=== PATIENT | female | born 1950 | race Caucasian/White ===

== ENCOUNTER 2018-07-06 13:37 | Inpatient (IN) | payer OTHER ==
[~2018-07-06] VITALS: Ht 167.6 cm; Wt 127.2 kg
--- NOTE | ~2018-07-06 | CATHLAB ---
[facility] [address] [place] [address] INVASIVE PROCEDURE REPORT Name: SOLANGE BRINK Room #: 210-P ADM IN M.R.#: [id number] Admission: 07/06/18 Attend Phys: Kristopher Beach, Discharge: Date of : 52 Date of Service: 07/07/18 1600 Report #: [id number] THIS REPORT FOR: //name// APPROVED REPORT Study performed: 07/07/2018 08:07:36 Patient Details Patient Status: In-Patient Room #: The patient is a 68 year-old female Event Personnel Kristopher Beach Tailoring Teacher, Chantelle Landis, Devon Wynne Kline, Tiffany RN RN, Johanny Marquez RN neuro intensivist physician Performed Art Access - R femoral artery* Magdiel Access - R femoral vein Right and Left Heart Cath w/or w/o Coronarie [id number] RLHC Aortogram Abdominal Peripheral Angio [id number] Renal Bilateral Peripheral Angiography [id number] CVRENALBIL Hemostasis w/ Mynx 09359 Initial Mod Sed Same Phys/QHP Gr5y [id number] 72247 Mod Sed Same Phys/QHP Ea 219937 Indication Chest pain Procedure Narrative The patient was brought urgently to the Cardiac Catheterization Laboratory and was prepped and draped in a sterile manner. The Right Groin^ was infiltrated with 1% Lidocaine subcutaneous anesthesia. A Right Heart Catheterization was performed with a 7 Fr. [place] catheter and pressure were recorded. Cardiac outputs were obtained by the Thermal Dilution method. A PINNACLE 6FR Sheath #[id number] sheath was inserted into the RFA^. Coronary angiography was performed using coronary diagnostic catheters. The right coronary system was accessed and visualized with a JR 4 catheter. The left coronary system was accessed and visualized with a JL 4 catheter. The left ventricle was accessed and visualized with a Pigtail catheter. Left ventriculogram was performed in ROBINS projection. An aortogram of the abdominal aorta was performed. Closure device was deployed with a 6 Fr Mynx. The patient tolerated the procedure well and there were no complications associated with the procedure. There was no hematoma. Intraoperative Conscious Sedation [address] [address] INVASIVE PROCEDURE REPORT Name: SOLANGE BRINK Room #: 210-P [facility] IN M.R.#: [id number] Admission: 07/06/18 Attend Phys: Kristopher Beach, Discharge: Date of : 52 Date of Service: 07/07/18 [facility] Report #: [id number] Sedation start time: 08:32 Case end Time: 09:00 Fentanyl 25 mcg Versed 1 mg Fluoro Time: 3.20 minutes Dose: DAP 6845.00 cGycm2 727 mGy Contrast Type and Amount: Visipaque 145 ml Hemodynamics The right atrial mean pressure is 23 mmHg. The right ventricular pressure is 53/17 mmHg. The pulmonary artery pressure is 54/24 mmHg with a mean of 38 mmHg. The mean pulmonary capillary wedge pressure is 26 mmHg. The aortic pressure is 132/67 mmHg with a mean of 83 mmHg. The left ventricular pressure is 150/12 mmHg with a mean of mmHg. The left ventricular end diastolic pressure is 27 mmHg. The cardiac output using thermo method is 5.90 L/min. The cardiac index using thermo method is 2.80 L/min/m2. Conclusion #1 short left main giving rise to LAD and circumflex no significant disease #2 LAD with mild irregularities of the distal aspect of extends to the apex. No high-grade occlusive disease #3 circumflex OM is nondominant but large in caliber and distribution no occlusive disease #4 dominant right coronary artery widely patent #5 selective angiography of the left superior renal branch is 50% ostial lesion and a smaller inferior branch widely patent #6 single right renal artery widely patent #7 normal left ventricular size with mild global hypokinesis EF 45-50% range Recommendations and plan continue aggressive risk factor modification. Continue rate control of atrial flutter underlying currently restart anticoagulation. Follow-up 3-4 weeks with consideration of cardioversion <ELECTRONICALLY SIGNED> By: Kristopher Beach MD, FACC 07/07/181599 99 99 Kristopher Beach MD, FACC /INF
--- NOTE | ~2018-07-06 | H ---
[facility] [place] [address] HISTORY AND PHYSICAL Name: SOLANGE BRINK Room #: [facility]- ADM IN M.R.#: [id number] Admission: 07/06/18 Attend Phys: Kristopher Beach MD, Discharge: Date of : 52 Report #: [id number] THIS REPORT FOR: //name// CC: Kristopher Jang DATE OF SERVICE: 07/06/2018 HISTORY OF PRESENT ILLNESS: She is going to be admitted to [facility] directly from the office here. The patient is a 68-year-old female who I have been asked to see by Dr. Jang from [place] today. She has had accompanied by her daughter who helps of manage hospice care. In any event, the patient does not have documented coronary artery disease. She had a cardiac workup 10 years ago. She has multiple risk factors including longstanding 1 to 2 packs a day smoker, COPD, diabetes, hypertension. Over the last 7-10 days, despite increasing diuretic therapy, she has had increasing peripheral edema and weight gain. Some PND and orthopnea are noted. Difficulty sleeping. She has responded somewhat to the increased dose of Lasix, which is now 60 a day. Some mild renal insufficiency. An echo Doppler, there few weeks ago had some LV function lower limits of normal, I do not have the complete report. She has been maintained on current medications which are Lasix 60, gabapentin, glipizide, lisinopril 20, Meloxicam, montelukast, ranitidine, simvastatin 40, temazepam 30, Tessalon, tizanidine, tramadol. PAST MEDICAL HISTORY: Positive for the hypertension, diabetes, COPD, tobacco use, obesity, rectal resection for dumping syndrome, DJD. FAMILY HISTORY: There was a grandmother who had an infarct in her 40s. SOCIAL HISTORY: She is actually . She has 4 children, accompanied by one daughter, 1 to 2 packs a day smoker, minimal alcohol use. REVIEW OF SYSTEMS: Essentially negative except for just a marked increase in fatigue and dyspnea. LABORATORY DATA: From last week revealed a creatinine of 1.4. The GFR had slightly worsened. PHYSICAL EXAMINATION: GENERAL: She is pleasant, alert. VITAL SIGNS: Pulse is 80s. She is mildly dyspneic at rest. Blood pressure is 120/56. HEENT: Eyes reveal xanthelasmas. Pharynx is clear. NECK: Shows preserved upstrokes without JVD or bruits. LUNGS: Markedly prolonged expiratory phase. [facility] [address] [place] [address] HISTORY AND PHYSICAL Name: SOLANGE BRINK Room #: 210-P ADM IN [facility].#: [id number] Admission: 07/06/18 Attend Phys: Kristopher Beach MD, Discharge: Date of : 52 Report #: [id number] CARDIOVASCULAR: Regular rate and rhythm. Distant heart tones are noted. S1, S2. ABDOMEN: Obese, nontender. EXTREMITIES: Reveal 1-2+ edema. Diminished distal pulses. NEUROLOGIC: Nonfocal. SKIN: Warm and dry without xanthoma or ulcer. MUSCULOSKELETAL: Generalized arthritic changes with valgus deformity of the knees. ASSESSMENT: 1. Acute combination of possible systolic, diastolic heart failure. 2. Suspected anginal equivalent coronary artery disease with multiple risk factors with anginal type pattern. 3. Chronic obstructive pulmonary disease, continued tobacco use. 4. Hypertension. 5. Hypercholesterolemia (treated). 6. Sleep apnea, noncompliant with CPAP apparatus. RECOMMENDATIONS AND PLAN: We will obtain the chemistry, laboratory work, BNP repeat echo. We would plan on proceeding to the catheterization lab in the morning for right and left heart catheterization and intervention as indicated. I have discussed this plan with the patient and her daughter. We will opt for direct admit to the CCU, holding on the diuretic at this time because of the creatinine and the need for possible contrast in the morning. We will obtain chest x-ray, BNP and lab as stated above. <ELECTRONICALLY SIGNED> By: Kristopher Beach MD, FACC 07/07/18 1255 1241 1326 Kristopher Beach MD, FACC /nt
--- NOTE | ~2018-07-06 | EKG ---
[address] [address] ELECTROCARDIOGRAM REPORT Name: SOLANGE BRINK Room #: 210-P ADM [facility] M.R.#: [id number] Admission: 07/06/18 Attend Phys: Kristopher Beach MD, Discharge: Date of : 52 Report #: [id number] THIS REPORT FOR: //name// [facility] Test Date: 2018-07-06 Test Time: 15:37:48 Pat Name: SOLANGE BRINK Department: Room: 210 P Gender: F Telehealth Nurse: Leslie ARGUELLO : 1950 Requested By: Nickie Ramirez Order Number: [id number] MD: Nathaniel Grubbs Measurements Intervals [place] Rate: 83 P: 70 WI: 185 QRS: 89 QRSD: 100 T: 74 QT: 386 QTc: 454 Interpretive Statements Sinus rhythm Borderline right axis deviation No previous ECG available for comparison Electronically Signed On 07-07-2018 8:31:03 CDT by Nathaniel Grubbs [email or web address] <ELECTRONICALLY SIGNED> By: Nathaniel Grubbs MD 07/07/18 0831 1537 1537 Nathaniel Grubbs MD /DEWEY
--- NOTE | ~2018-07-06 | 2DMMODE ---
[facility] [address] [place] [address] 2 D/M-MODE ECHOCARDIOGRAM Name: SOLANGE BRINK Room #: 210-P ADM IN M.R.#: [id number] Admission: 07/06/18 Attend Phys: Kristopher Beach, Discharge: Date of : 52 Date of Service: 07/06/18 1611 Report #: [id number] THIS REPORT FOR: //name// APPROVED REPORT Study performed: 07/06/2018 14:42:00 EXAM: Comprehensive 2D, Doppler, and color-flow Echocardiogram Patient Location: Echo lab Room #: 210 Status: routine BSA: 2.33 HR: 87 bpm BP: 140/75 mmHg Rhythm: NSR Other Information Study Quality: Adequate Indications COPD Diabetes Dyspnea Hypertension/HDD 2D Dimensions RVDd: 42.16 mm IVSd: 10.54 (7-11mm) LVOT Diam: 20.45 (18-24mm) LVDd: 37.80 mm PWd: 9.43 (7-11mm) Ascending Ao: 33.27 (22-36mm) LVDs: 24.51 (25-40mm) Aortic Root: 29.91 mm IVC: 17.00 mm Volumes Left Atrial Volume (Systole) Single Plane 4CH: 33.36 mL Single Plane 2CH: 39.92 mL LA ESV Index: 17.00 mL/m2 Aortic Valve AoV Peak Estiven.: 1.78 m/s AO Peak Gr.: 12.74 mmHg LVOT Max P.66 mmHg LVOT Max V: 1.29 m/s FAITH Vmax: 2.37 cm2 Mitral Valve [facility] [address] [address] 2 D/M-MODE ECHOCARDIOGRAM Name: SOLANGE BRINK Room #: 210-P [facility] IN .R.#: [id number] Admission: 07/06/18 Attend Phys: Kristopher Beach, Discharge: Date of : 52 Date of Service: 07/06/18 1611 Report #: [id number] E/A Ratio: 0.8 MV Decel. Time: 180.18 ms MV E Max Estiven.: 0.71 m/s MV A Estiven.: 0.84 m/s MV PHT: 52.25 ms IVRT: 87.66 ms Pulmonary Valve PV Peak Estiven.: 1.12 m/s PV Peak Gr.: 5.01 mmHg Pulmonary Vein P Vein S: 0.68 m/s P Vein A: 0.31 m/s P Vein D: 0.59 m/s P Vein A Dur.: 124.6 msec P Vein S/D Ratio: 1.15 Tricuspid Valve TR Peak Estiven.: 3.17 m/s TR Peak Gr.: 40.29 mmHg PA Pressure: 45.00 mmHg Left Ventricle The left ventricle is normal size. There is normal LV segmental wall motion. There is normal left ventricular wall thickness. The left ventricular systolic function is normal. The left ventricular ejection fraction is within the normal range. LVEF is 60-65%. Grade I - abnormal relaxation pattern. Right Ventricle Right ventricle is borderline dilated. The right ventricular systolic function is normal. Atria The left atrium size is normal. Right atrium is at the upper limits of normal. Aortic Valve The aortic valve is normal in structure. No aortic regurgitation is present. There is no aortic valvular stenosis. Mitral Valve The mitral valve is normal in structure. There is no mitral valve regurgitation noted. No evidence of mitral valve stenosis. Tricuspid Valve The tricuspid valve is normal in structure. There is trace to mild tricuspid regurgitation. Estimated PAP 45 mmHg. There is moderate [facility] [address] [place] [address] 2 D/M-MODE ECHOCARDIOGRAM Name: SOLANGE BRINK Room #: 210-P ADM IN M.R.#: [id number] Admission: 07/06/18 Attend Phys: Kristopher Beach, Discharge: Date of : 52 Date of Service: 07/06/18 1611 Report #: [id number] pulmonary hypertension. Pulmonic Valve The pulmonary valve is normal in structure. There is no pulmonic valvular regurgitation. Great Vessels The aortic root is normal in size. IVC is normal in size and collapses >50% with inspiration. Pericardium There is no pericardial effusion. <Conclusion> The left ventricle is normal size. LVEF is 60-65%. Grade I - abnormal relaxation pattern. Right ventricle is borderline dilated. The left atrium size is normal. The aortic valve is normal in structure. No aortic regurgitation is present. There is no mitral valve regurgitation noted. There is trace to mild tricuspid regurgitation. Estimated PAP 45 mmHg. There is moderate pulmonary hypertension. The aortic root is normal in size. There is no pericardial effusion. <ELECTRONICALLY SIGNED> By: Kristopher Beach MD, FACC 07/06/181610 10 10 Kristopher Beach MD, FACC /INF
--- NOTE | ~2018-07-06 | D ---
[facility] [place] [address] DISCHARGE SUMMARY Name: SOLANGE BRINK Room #: 210-P [facility] IN M.R.#: [id number] Admission: 07/06/18 Attend Phys: Kristopher Beach MD, Discharge: 07/08/18 Date of : 52 Report #: [id number] THIS REPORT FOR: //name// CC: Kristopher Jang DATE OF SERVICE: 07/08/2018 HOSPITAL COURSE: The patient is a 68-year-old female admitted here with marked volume overload, chest pressure and an equivocal abnormal nuclear stress test. Taken for right and left heart catheterization. No significant occlusive coronary artery disease. There is diffuse distal LAD disease, which may have explained the abnormality on the nuclear test. Marked elevation in right heart pressures and pulmonary capillary wedge pressure of 25. She was aggressively diuresed with IV diuresis. She is markedly better down approximately 7 pounds. Her creatinine is 1.2, her potassium is 4.7. We will discharge on Demadex 20, Aldactone 25, lisinopril 20, Toprol 25, glimepiride, montelukast; she should hold meloxicam for the most part, temazepam at night p.r.n., gabapentin. Long discussion regarding salt and fluid restriction, daily weights. This appears to be diastolic dysfunction due to age and obesity and probably a component of sleep apnea. She may require some oxygen at discharge, I will defer this to Pulmonary. DISCHARGE DIAGNOSES: 1. Acute on chronic diastolic heart failure. 2. Hypertension. 3. Diabetes. 4. Chronic obstructive pulmonary disease, continued tobacco use. RECOMMENDATIONS AND PLAN: As stated above. She is to follow up in 1 week with nurse practitioner, Isac Jasmyne Rosales. She will call with any issues. Thank you for asking me to assist in the care of this patient. By: [phone] Kristopher Beach MD, FACC /nt
[2018-07-06 14:22] VITALS: BP 140/75
[2018-07-06 14:41] LABS: HEMOGLOBIN 15.9 gm/dL (12.0-15.0); MCH 29.9 pg (26.0-34.0); MCHC 33.9 g/dL (28.0-37.0); MCV 88.3 fL (80.0-100.0); RBC 5.33 mil/uL (4.20-5.00); RDW 14.4 % (10.5-14.5); WBC 16.3 thou/uL (4.0-11.0)
[2018-07-06] MEDS ORDERED: AZELASTINE137 MCG/0. NASAL (14:57)
[2018-07-06] MEDS ORDERED: SYMBICORT160 MCG/4. INH (14:58)
[2018-07-06] MEDS ORDERED: WELLBUTRIN XL150 MG PO (14:59)
[2018-07-06] MEDS ORDERED: DOXYCYCLINE 10100 MG PO (15:02)
[2018-07-06] MEDS ORDERED: FLONASE 0.05%50 MCG NASAL (15:04)
[2018-07-06] MEDS ORDERED: LASIX 40 MG TAB40 M2 PO (15:05)
[2018-07-06] MEDS ORDERED: LASIX 20 MG TAB20 MG PO (15:06)
[2018-07-06] MEDS ORDERED: NEURONTIN 400400 M1 PO (15:06)
[2018-07-06] MEDS ORDERED: GLIPIZIDE 10 MG10 MG PO (15:07)
[2018-07-06] MEDS ORDERED: PRINIVIL20 MG PO (15:08)
[2018-07-06] MEDS ORDERED: MOBIC15 MG PO (15:08)
[2018-07-06] MEDS ORDERED: SINGULAIR 10 MG10 M1 PO (15:10)
[2018-07-06] MEDS ORDERED: ZANTAC 150MG T150 MG PO (15:10)
[2018-07-06] MEDS ORDERED: RESTORIL30 MG PO (15:11)
[2018-07-06] MEDS ORDERED: SIMVASTATIN40 MG PO (15:11)
[2018-07-06] MEDS ORDERED: TESSALON PERLE100 MG PO (15:12)
[2018-07-06] MEDS ORDERED: TRAMADOL 50 MG50 MG PO (15:12)
[2018-07-06 20:30] VITALS: BP 145/62
[2018-07-06 21:16] LABS: BE(vivo) 3.9 mmol/L (-2 to +3); HCO3 31.2 mmol/L (22.0-26.0); PCO2 56.3 mmHg (35.0-45.0); PO2 60.9 mmHg (80.0-100.0); pH 7.361 (7.360-7.450)
[2018-07-07] VITALS (16 sets, daily range): BP systolic 103–154; BP diastolic 43–88
[2018-07-07 07:50] LABS: CALCIUM 9.1 mg/dL (8.5-10.1); CREATININE 1.1 mg/dL (0.6-1.0); POTASSIUM 4.2 mmol/L (3.5-5.1)
[2018-07-08] VITALS (8 sets, daily range): BP systolic 86–116; BP diastolic 41–69
[2018-07-08 05:51] LABS: CALCIUM 9.5 mg/dL (8.5-10.1); CREATININE 1.2 mg/dL (0.6-1.0); POTASSIUM 4.7 mmol/L (3.5-5.1)
[2018-07-08] MEDS ORDERED: TOPROL XL25 MG PO (08:44)
[2018-07-08] MEDS ORDERED: DEMADEX20 MG PO (08:45)
[2018-07-08] MEDS ORDERED: SPIRONOLACTONE25 M1 PO (08:51)
[2018-07-09 00:08] LABS: ADENOVIRUS Negative (Negative); INFLUENZA A Negative (Negative); INFLUENZA B Negative (Negative); METAPNEUMOVIRUS Negative (Negative); PARAINFLUENZA 1 Negative (Negative); PARAINFLUENZA 2 Negative (Negative); PARAINFLUENZA 3 Negative (Negative); RHINOVIRUS Negative (Negative); RSV A Negative (Negative); RSV B Negative (Negative)
== END 2018-07-08 11:07 | disposition home or self-care (01) | DRG 205 ==
LOC: 2N 13:37 → ENTRNSPT 07-08 10:55 → EDTRNSPTSTS 07-08 10:57 → 2N 07-08 11:07
PROVIDERS: Internal Medicine Cardiovascular Disease; Nurse Practitioner Adult Health; Nurse Practitioner Gerontology; Pediatrics
DX: M94.0 Chondrocostal junction syndrome [Tietze] (principal); I50.33 Acute on chronic diastolic (congestive) heart failure; J44.1 Chronic obstructive pulmonary disease with (acute) exacerbation; Z68.42 Body mass index [BMI] 45.0-49.9, adult; I11.0 Hypertensive heart disease with heart failure; E11.9 Type 2 diabetes mellitus without complications; E66.9 Obesity, unspecified; M19.90 Unspecified osteoarthritis, unspecified site; E78.00 Pure hypercholesterolemia, unspecified; D72.829 Elevated white blood cell count, unspecified; I27.20 Pulmonary hypertension, unspecified; G47.33 Obstructive sleep apnea (adult) (pediatric); E66.01 Morbid (severe) obesity due to excess calories; F17.210 Nicotine dependence, cigarettes, uncomplicated; Z79.899 Other long term (current) drug therapy; Z28.21 Immunization not carried out because of patient refusal; Z82.3 Family history of stroke; Z88.6 Allergy status to analgesic agent; Z91.19 Patient's noncompliance with other medical treatment and regimen
CPT/HCPCS: 10081

== ENCOUNTER 2019-08-14 16:57 | Inpatient (IN) | payer OTHER ==
[~2019-08-14] VITALS: Ht 167.6 cm; Wt 125.2 kg
[2019-08-14 16:57] VITALS: BP 148/69
[~2019-08-14 16:57] MED LIST: AZELASTINE137 MCG/0. NASAL; DEMADEX20 MG PO; DOXYCYCLINE 10100 MG PO; FLONASE 0.05%50 MCG NASAL; GLIPIZIDE 10 MG10 MG PO; LASIX 20 MG TAB20 MG PO; LASIX 40 MG TAB40 M2 PO; MOBIC15 MG PO; NEURONTIN 400400 M1 PO; PRINIVIL20 MG PO; RESTORIL30 MG PO; SIMVASTATIN40 MG PO; SINGULAIR 10 MG10 M1 PO; SPIRONOLACTONE25 M1 PO; SYMBICORT160 MCG/4. INH; TESSALON PERLE100 MG PO; TOPROL XL25 MG PO; TRAMADOL 50 MG50 MG PO; WELLBUTRIN XL150 MG PO; ZANTAC 150MG T150 MG PO
[2019-08-14] MEDS ORDERED: LOPERAMIDE2 MG PO (17:20)
[2019-08-14] MEDS ORDERED: METOLAZONE 2.52.5 M1 PO (17:21)
[2019-08-14] MEDS ORDERED: TORSEMIDE20 MG PO (17:22)
[2019-08-14] MEDS ORDERED: ZANAFLEX4 M1 PO (17:25)
[2019-08-14] MEDS ORDERED: INTERMEZZO3.5 MG PO (17:26)
[2019-08-14] MEDS ORDERED: TRELEGY ELLIPT1 EACH INH (17:26)
[2019-08-14 19:12] LABS: HEMATOCRIT 43.2 % (37.0-47.0); HEMOGLOBIN 14.7 gm/dL (12.0-15.0); MCH 29.8 pg (26.0-34.0); MCV 87.8 fL (80.0-100.0); PLATELET COUNT 288 thou/uL (150-400); RBC 4.92 mil/uL (4.20-5.00); RDW 14.3 % (10.5-14.5); WBC 20.5 thou/uL (4.0-11.0)
[2019-08-14 19:21] LABS: ANION GAP 7 mmol/L (7-16); BUN 33 mg/dL (7-18); CALCIUM 9.9 mg/dL (8.5-10.1); CHLORIDE 86 mmol/L (98-107); CO2 33 mmol/L (21-32); CREATININE 1.6 mg/dL (0.6-1.0); GLUCOSE 120 mg/dL (74-106); POTASSIUM 4.1 mmol/L (3.5-5.1); SODIUM 126 mmol/L (136-145)
[2019-08-14 19:31] LABS: TROPONIN-I <0.06 ng/mL (<0.06)
[2019-08-14 19:49] LABS: ALBUMIN 3.4 g/dL (3.4-5.0); DIRECT BILIRUBIN 0.1 mg/dL (<0.1-0.3); MAGNESIUM 1.7 mg/dL (1.8-2.4); TOTAL BILIRUBIN 0.4 mg/dL (<0.1-1.0); TOTAL PROTEIN 7.3 g/dL (6.4-8.2)
[2019-08-14 19:58] LABS: HCO3 33.1 mmol/L (22.0-26.0); PCO2 VENOUS 51.7 mmHg (41.0-51.0); PO2 VENOUS 48.6 mmHg (35.0-45.0)
[2019-08-14 20:05] LABS: ABSOLUTE NEUTROPHILS 15.8 thou/uL (1.4-8.2)
[2019-08-14 20:06] LABS: ANISOCYTOSIS 1+; POLYCHROMASIA OCCASIONAL
[2019-08-14 21:04] VITALS: BP 129/50
--- NOTE | 2019-08-14 21:05 | NUR ---
HANDOFF TOOL SENT TO [facility]
[2019-08-14 21:37] VITALS: BP 114/80
[2019-08-14 23:41] LABS: URINE BILIRUBIN NEGATIVE (Negative); URINE BLOOD NEGATIVE (Negative); URINE CLARITY CLEAR; URINE COLOR YELLOW; URINE GLUCOSE-RANDOM* NEGATIVE (Negative); URINE KETONES NEGATIVE (Negative); URINE LEUKOCYTES-REFLEX NEGATIVE (Negative); URINE NITRITE-REFLEX NEGATIVE (Negative); URINE PROTEIN (DIPSTICK) NEGATIVE (Negative); URINE UROBILINOGEN 0.2 E.U./dl (0.2-1.0)
[2019-08-15] VITALS (7 sets, daily range): BP systolic 87–139; BP diastolic 30–65
--- NOTE | 2019-08-15 05:50 | NUR ---
PT ARRIVED VIA CART FROM ER. PT IS STANDBY ASSIST AND USES A CANE AT HOME WHEN WALKING TO PARKING LOT OR LONG DISTANCES. ADMISSION COMPLETED, MED REC DONE, INTERVENTIONS IN PLACE AND CARE PLAN WITH DATES STARTED. VSS. D-DIMER ELEVATED, CALL PLACED TO WEI HOLDER. NO ORDERS RECEIVED. VSS, PT STATES NO PAIN OR NAUSEA. STILL NEED TO COLLECT SPUTUM SAMPLE. HOURLY ROUNDING.
--- NOTE | 2019-08-15 08:40 | EKG ---
[address] [address] ELECTROCARDIOGRAM REPORT Name: SOLANGE BRINK Room #: 349-I ADM IN M.R.#: [id number] Admission: 08/14/19 Attend Phys: Sherman Mistry MD Discharge: Date of : 52 Report #: [id number] THIS REPORT FOR: //name// [facility] ED Test Date: 2019-08-14 Test Time: 17:17:45 Pat Name: SOLANGE BRINK Department: Room: 349 Gender: F Turn Supervisor: JOHN : 1950 Requested By: Phong Marc Order Number: [id number] MD: Nathaniel Grubbs Measurements Intervals Lucile Rate: 75 P: 71 SC: 188 QRS: 84 QRSD: 101 T: 65 QT: 401 QTc: 448 Interpretive Statements Sinus rhythm Borderline right axis deviation Compared to ECG 07/06/2018 15:37:48 No significant changes Electronically Signed On 08-15-2019 8:39:42 EMB[employer] SYSTEMS DEVELOPER by Nathaniel Grubbs [email or web address] <ELECTRONICALLY SIGNED> By: Nathaniel Grubbs MD 08/15/19 0839 16 16 Nathaniel Grubbs MD /DEWEY
--- NOTE | 2019-08-15 09:59 | NUR ---
ASSESSMENT: CM REVIEWED CHART AND MET WITH PATIENT AT THE BEDSIDE. PT WAS ADMITTED WITH HYPOXIA/COPD. PT REPORTS SHE LIVES IN AN APT ALONE. PT REPORTS NO STEPS TO ENTER. PT STATES SHE NORMALLY AMBULATES INDEPENDENTLY INSIDE BUT USES A CANE OUTSIDE OF THE HOME. PT REPORTS HAVING A GRAB BAR AND SHOWER CHAIR. PT REPORTS SHE DOES NOT HAVE HH BUT HER DAUGHTER WORKS FOR A COMPANY WHERE MEDICAID PAYS HER TO HELP PT COOK/CLEAN/DO CHORES. PT REPORTS SHE HAS OXYGEN AT HOME PRN AND IS UNSURE OF THE PROVIDER. PT WEARS A CPAP AT NIGHT. CM DISCUSSED ROLE. PT DOES NOT ANTICIPATE HAVING ANY NEEDS AT DISCHARGE, CM WILL CONTINUE TO FOLLOW TO ASSIST NEEDED.
--- NOTE | 2019-08-15 12:48 | 2DMMODE ---
[facility] [address] [place] [address] 2 D/M-MODE ECHOCARDIOGRAM Name: SOLANGE BRINK Room #: 349-I ADM IN M.R.#: [id number] Admission: 08/14/19 Attend Phys: Sherman Mistry MD Discharge: Date of : 52 Report #: [id number] THIS REPORT FOR: //name// APPROVED REPORT Study performed: 08/15/2019 11:47:20 EXAM: Comprehensive 2D, Doppler, and color-flow Echocardiogram Patient Location: Echo lab Room #: 349 Status: routine BSA: 2.30 HR: 94 bpm BP: 133/55 mmHg Rhythm: NSR Other Information Study Quality: Adequate Indications Pulmonary Hypertension Dyspnea Morbid obesity 2D Dimensions RVDd: 45.62 mm IVSd: 8.62 (7-11mm) LVOT Diam: 17.66 (18-24mm) LVDd: 47.48 mm PWd: 9.04 (7-11mm) Ascending Ao: 30.21 (22-36mm) LVDs: 32.58 (25-40mm) Aortic Root: 28.68 mm IVC: 20.00 mm Volumes Left Atrial Volume (Systole) Single Plane 4CH: 58.29 mL Single Plane 2CH: 43.05 mL LA ESV Index: 23.00 mL/m2 Aortic Valve AoV Peak Estiven.: 1.65 m/s AO Peak Gr.: 10.82 mmHg LVOT Max P.96 mmHg LVOT Max V: 1.22 m/s FAITH Vmax: 1.82 cm2 Mitral Valve E/A Ratio: 0.9 [facility] [address] [address] 2 D/M-MODE ECHOCARDIOGRAM Name: SOLANGE BRINK Room #: 349-I [facility] IN [facility].#: [id number] Admission: 08/14/19 Attend Phys: Sherman Mistry MD Discharge: Date of : 52 Report #: [id number] MV Decel. Time: 235.57 ms MV E Max Estiven.: 0.82 m/s MV A Estiven.: 0.96 m/s MV PHT: 68.31 ms IVRT: 119.95 ms Pulmonary Valve PV Peak Estiven.: 1.29 m/s PV Peak Gr.: 6.69 mmHg Pulmonary Vein P Vein S: 0.63 m/s P Vein A: 0.22 m/s P Vein D: 0.40 m/s P Vein A Dur.: 83.0 msec P Vein S/D Ratio: 1.58 Tricuspid Valve TR Peak Estiven.: 3.57 m/s TR Peak Gr.: 51.12 mmHg PA Pressure: 61.00 mmHg Left Ventricle The left ventricle is normal size. There is normal LV segmental wall motion. There is normal left ventricular wall thickness. There is normal left ventricular wall thickness. The left ventricular systolic function is normal. The left ventricular ejection fraction is within the normal range. LVEF is 60-65%. Mild diastolic dysfunction is present (impaired relaxation pattern). Right Ventricle Right ventricle is dilated. The right ventricular systolic function is normal. Atria The left atrium size is normal. Right atrium is dilated. Aortic Valve The aortic valve is normal in structure. No aortic regurgitation is present. There is no aortic valvular stenosis. Mitral Valve The mitral valve is normal in structure. There is no mitral valve regurgitation noted. No evidence of mitral valve stenosis. Tricuspid Valve The tricuspid valve is normal in structure. There is moderate tricuspid regurgitation. Estimated PAP 60 mmHg. There is moderate pulmonary hypertension. [facility] [address] [place] [address] 2 D/M-MODE ECHOCARDIOGRAM Name: SOLANGE BRINK Room #: 349-I ADM IN M.R.#: [id number] Admission: 08/14/19 Attend Phys: Sherman Mistry MD Discharge: Date of : 52 Report #: [id number] Pulmonic Valve The pulmonary valve is normal in structure. There is no pulmonic valvular regurgitation. Great Vessels The aortic root is normal in size. IVC is dilated and collapses >50% with inspiration. Pericardium There is no pericardial effusion. <Conclusion> The left ventricular systolic function is normal. There is normal LV segmental wall motion. LVEF is 60-65%. Mild diastolic dysfunction Right ventricle is dilated. The aortic valve is normal in structure. No aortic regurgitation or stenosis. The mitral valve is normal in structure. No mitral valve regurgitation There is moderate tricuspid regurgitation. Estimated pulmonary artery pressure of 60 mmHg. There is no pericardial effusion. <ELECTRONICALLY SIGNED> By: Sravan Carter MD, FACC 08/15/19 1248 1248 1248 Sravan Carter MD, FACC /INF
--- NOTE | 2019-08-15 16:01 | NUR ---
ASSUMED CARE OF PT AT 0700. PT AOX4 IN NO ACUTE DISTRESS. SOME SOA W/ ACTIVITY. BP LOW THIS AM - COMPLAINING OF LIGHTHEADEDNESS WHEN INITIATLLY GETTING UP - ORTHOSTATIC BP UNREMARKABLE. MANY FAMILY AT BEDSIDE. ON 2L NC. UP AD BK W/ STEADY GAIT. SINUS ON TELEMETRY. PT PROGRESSING TOWARD POC GOALS.
--- NOTE | 2019-08-16 04:04 | NUR ---
Received pt. on 1L/NC at shift change. She mentioned she uses CPAP at HS at home but did not bring her machine. She also requested for sleep med. CLEANERS notified and orders obtained. RT notified of new order. Pt. slept fair during the night with CPAP on. RT reported she had to put 10L O2 add in to maintain sat greater than 90% while asleep. Shortness of breath with exertion. Afebrile. Up ad luis alfredo in room with steady gait. Making progress towards care plan goals.
[2019-08-16 04:28] VITALS: BP 101/74
[2019-08-16 07:37] VITALS: BP 130/50
[2019-08-16 09:42] LABS: HCO3 28.3 mmol/L (22.0-26.0); PCO2 45.7 mmHg (35.0-45.0); PO2 65.2 mmHg (80.0-100.0); sO2 92.9 % (92.0-98.0)
--- NOTE | 2019-08-16 11:11 | NUR ---
PT OFF UNIT TO [facility].
[2019-08-16 11:55] LABS: HEMATOCRIT 45.9 % (37.0-47.0); MCH 29.5 pg (26.0-34.0); MCHC 32.8 g/dL (28.0-37.0); MCV 89.9 fL (80.0-100.0); RBC 5.1 mil/uL (4.20-5.00); RDW 14.5 % (10.5-14.5); WBC 34.2 thou/uL (4.0-11.0)
[2019-08-16 11:58] LABS: CALCIUM 10.6 mg/dL (8.5-10.1); CREATININE 1.6 mg/dL (0.6-1.0); POTASSIUM 5.2 mmol/L (3.5-5.1)
[2019-08-16 12:22] VITALS: BP 148/83
--- NOTE | 2019-08-16 13:24 | NUR ---
ON-GOING ASSESSMENT: PT IS GETTING CT OF ABDOMEN/PELVIS. PT REMAINS ON IV STEROIDS. CM WILL CONTINUE TO FOLLOW TO ASSIST NEEDED.
--- NOTE | 2019-08-16 14:06 | NUR ---
RON BETTS FROM [facility].
--- NOTE | 2019-08-16 14:18 | NUR ---
Assess due to RD consult received but no reason specified. Admit with SOA, hyponatremia. Hx diabetes which pt reports is usually well controlled, stating last A1C was 6. Hospital BG up to 319 and has required ss insulin. Pt with extreme class III obesity. Has heart healthy diet order and did not want to add carb controlled. Explained BG very elevated and if continues on steroids would suggest adding this restriction to diet order. Stated she would not eat any sugary items or added sugars and often orders own meals from the menu. Hx dumping syndrome from prior surgical history. Vit D and B12 levels are pending. Appetite is good. Low nutrition risk
--- NOTE | 2019-08-16 14:23 | NUR ---
If BG remain elevated, recommend add carb controlled restriction to diet order. Pt currently voices she does not want her diet order changed.
[2019-08-16 15:09] VITALS: BP 140/67
[2019-08-16 19:45] VITALS: BP 128/56
--- NOTE | 2019-08-17 01:58 | NUR ---
PATIENT IS ALERT AND ORIENTED. PATIENT IS UP AD BK. PATIENT IS 1LNC PRN AND CPAP HS. PATIENT DENIES PAIN OR NAUSEA. PATIENT IS NSR ON TELE. BATH RECIVED DURING DAY SHIFT. PATIENT IS RESTING COMFORTABLY IN BED. WCM. PATIENT IS NOT PROGRESSING TO GOALS. WBC STILL ELEVATED. TO TEMP.
[2019-08-17 03:40] VITALS: BP 144/65
[2019-08-17 06:06] LABS: HEMATOCRIT 45.4 % (37.0-47.0); MCH 29.4 pg (26.0-34.0); MCV 89.2 fL (80.0-100.0); RBC 5.09 mil/uL (4.20-5.00); RDW 14.3 % (10.5-14.5); WBC 27.7 thou/uL (4.0-11.0)
[2019-08-17 07:25] VITALS: BP 102/55
[2019-08-17 07:44] LABS: CALCIUM 10.6 mg/dL (8.5-10.1); CREATININE 1.4 mg/dL (0.6-1.0); POTASSIUM 4.9 mmol/L (3.5-5.1)
--- NOTE | 2019-08-17 13:07 | NUR ---
ON-GOING ASSESSMENT: PT IS SLOWLY PROGRESSING TOWARDS DISCHARGE GOALS. A SAT EXERCISE WAS COMPLETED TODAY AND PT WILL NEED 4L OXYGEN WITH EXERTION AT DISCHARGE. CM SPOKE WITH PATIENTS DAUGHTER WHO HELPS ASSIST HER AND REPORTS SHE HAS [facility] ARRANGED AT HOME NEEDED CURRENTLY AND WAS TOLD SHE WILL ALSO NEED A NEBULIZER. CM REACHED OUT TO [facility] [phone] WHO CONFIRMS THEY HAVE PATIENT IN SERVICES AND SHE SHOULD HAVE ALL THE SUPPLIES AT HOME SHE NEEDS BUT THEY WILL MAKE A NOTE THAT SHE IS NOW NEEDING 4L WITH EXERTION. THEY WILL ALSO NEED A SCRIPT FOR THE NEBULIZER FAXED TO THEM AT [phone] WHEN PATIENT DISCHARGES AND THEY CAN DELIVER TO HER HOME. CM WILL CONTINUE TO FOLLOW. POSSIBLE DISCHARGE TOMORROW IF PT PROGRESSES.
[2019-08-17 15:13] VITALS: BP 137/61
[2019-08-17] MEDS ORDERED: CULTURELLE KID1 EAC1 PO (15:39)
[2019-08-17] MEDS ORDERED: DORYX MPC120 MG PO (15:39)
[2019-08-17] MEDS ORDERED: PREDNISONE 10 M10 M1 PO (15:39)
[2019-08-17] MEDS ORDERED: NEBULIZER MISCELL (15:46)
[2019-08-17] MEDS ORDERED: IPRAT-ALBUT 0.5-3 ML INH ×2 (15:46)
[2019-08-17] MEDS ORDERED: HOME OXYGEN (15:46)
--- NOTE | 2019-08-17 15:55 | NUR ---
ASSUMED CARE OF PT AT 0700. PT AOX4 UP AD BK. BREATHING COMFORTABLY ON SUPPLEMENTAL OXYGEN. POSSIBLE D/C LATER TODAY. WILL CONT TO MONITOR.
[2019-08-17 19:16] VITALS: BP 167/67
--- NOTE | 2019-08-18 01:51 | NUR ---
PATIENT IS ALERT AND ORIENTED. PATIENT IS UP AD BK. PATIENT ON 3-4LNC NEW PRCRIPTION. PATIENT IS PENDING DISCHARGE TODAY. PATIENT PENDING LAB RESULTS. PATIENT DENIES PAIN OR NAUSEA. PATIENT IS RESTING COMFORTABLY IN BED. WCM. PATIENT IS PROGRESSING TO GOALS.
[2019-08-18 03:29] VITALS: BP 138/63
[2019-08-18 05:55] LABS: CALCIUM 10.3 mg/dL (8.5-10.1); CREATININE 1.5 mg/dL (0.6-1.0); POTASSIUM 4.3 mmol/L (3.5-5.1)
[2019-08-18 07:14] VITALS: BP 139/61
[2019-08-18] MEDS ORDERED: MUCINEX600 MG PO (08:05)
[2019-08-18 09:43] LABS: HEMATOCRIT 44.9 % (37.0-47.0); HEMOGLOBIN 14.4 gm/dL (12.0-15.0); MCH 29.2 pg (26.0-34.0); MCHC 32.2 g/dL (28.0-37.0); MCV 90.8 fL (80.0-100.0); RBC 4.94 mil/uL (4.20-5.00); RDW 14.7 % (10.5-14.5); WBC 23.4 thou/uL (4.0-11.0)
[2019-08-18 10:46] VITALS: BP 139/61
--- NOTE | 2019-08-18 12:37 | NUR ---
ON-GOING ASSESSMENT: PT HAS ORDERS TO DISCHARGE HOME TODAY. PT HAS HOME OXYGEN PRN THROUGH [facility] BUT IS NOW REQUIRING 2L AT REST AND 4L WITH EXERTION. CM SPOKE WITH [facility] YESTERDAY WHO REPORTS PT HAS ALL SUPPLIES SHE NEEDS BUT THEY WILL TAKE NOTE OF HER INCREASED NEEDS. CM ALSO NOTIFIED THEM THAT PATIENT IS NEEDING A NEBULIZER AND THEY ARE STATING THEY CAN DELIVER IT TO PATIENT. CM FAXED RX FOR INCREASED OXYGEN NEEDS, NEBULIZER AND PROGRESS NOTES/SAT EXERCISE TO [facility] AT [phone]. PTS DAUGHTER IS PRESENT AND HAS A PORTABLE TANK TO TAKE PATIENT HOME. PT REPORTS NO FURTHER NEEDS FROM CM AT THIS TIME.
--- NOTE | 2019-08-18 13:39 | NUR ---
ASSUMED CARE OF PT AT 0700. AOX4 IN NO ACUTE DISTRESS. STABLE FOR D/C. NEB SCRIPT FAXED ACCORDINGLY. DAUGHTER AT BEDSIDE, AGREEABLE AND UNDERSTANDING WITH D/C PLANNING. WILL CONT TO MONITOR UNTIL TRANSPORT ARRIVAL.
[2019-08-20 16:06] LABS: ADENOVIRUS Negative (Negative); INFLUENZA A Negative (Negative); INFLUENZA B Negative (Negative); METAPNEUMOVIRUS Negative (Negative); PARAINFLUENZA 1 Negative (Negative); PARAINFLUENZA 2 Negative (Negative); PARAINFLUENZA 3 Negative (Negative); RHINOVIRUS Negative (Negative); RSV A Negative (Negative); RSV B Negative (Negative)
== END 2019-08-18 13:44 | disposition home or self-care (01) | DRG 291 ==
LOC: ER 16:57 → 3W 20:03 → EROBS 20:03 → 3W 21:39
PROVIDERS: Emergency Medicine; Nurse Practitioner Acute Care; Nurse Practitioner Adult Health; ADMIT Hospitalist
PROC: 5A09357 Assistance with Respiratory Ventilation, Less than 24 Consecutive Hours, Continuous Positive Airway Pressure (ICD-10-PCS; principal; 2019-08-15)
PROC: 5A09357 Assistance with Respiratory Ventilation, Less than 24 Consecutive Hours, Continuous Positive Airway Pressure (ICD-10-PCS; 2019-08-16)
PROC: 5A09357 Assistance with Respiratory Ventilation, Less than 24 Consecutive Hours, Continuous Positive Airway Pressure (ICD-10-PCS; 2019-08-17)
PROC: 5A09357 Assistance with Respiratory Ventilation, Less than 24 Consecutive Hours, Continuous Positive Airway Pressure (ICD-10-PCS; 2019-08-18)
DX: I13.0 Hypertensive heart and chronic kidney disease with heart failure and stage 1 through stage 4 chronic kidney disease, or unspecified chronic kidney disease (principal); I50.33 Acute on chronic diastolic (congestive) heart failure; J96.21 Acute and chronic respiratory failure with hypoxia; J44.1 Chronic obstructive pulmonary disease with (acute) exacerbation; E87.1 Hypo-osmolality and hyponatremia; N17.9 Acute kidney failure, unspecified; Z68.42 Body mass index [BMI] 45.0-49.9, adult; K91.1 Postgastric surgery syndromes; I27.20 Pulmonary hypertension, unspecified; D72.829 Elevated white blood cell count, unspecified; E11.22 Type 2 diabetes mellitus with diabetic chronic kidney disease; I25.10 Atherosclerotic heart disease of native coronary artery without angina pectoris; G47.33 Obstructive sleep apnea (adult) (pediatric); R26.2 Difficulty in walking, not elsewhere classified; E78.5 Hyperlipidemia, unspecified; G47.00 Insomnia, unspecified; F32.9 Major depressive disorder, single episode, unspecified; E66.01 Morbid (severe) obesity due to excess calories; E55.9 Vitamin D deficiency, unspecified; Z71.6 Tobacco abuse counseling; Z79.899 Other long term (current) drug therapy; Z88.5 Allergy status to narcotic agent; Z91.048 Other nonmedicinal substance allergy status; Z87.891 Personal history of nicotine dependence
CPT/HCPCS: 10779; 10879

== ENCOUNTER → 2019-10-11 | Outpatient (CLI) | payer OTHER ==
[~2019-10-11] MED LIST changes: +CULTURELLE KID1 EAC1 PO; +DORYX MPC120 MG PO; +HOME OXYGEN; +INTERMEZZO3.5 MG PO; +IPRAT-ALBUT 0.5-3 ML INH; +LOPERAMIDE2 MG PO; +METOLAZONE 2.52.5 M1 PO; +MUCINEX600 MG PO; +NEBULIZER MISCELL; +PREDNISONE 10 M10 M1 PO; +TORSEMIDE20 MG PO; +TRELEGY ELLIPT1 EACH INH; +ZANAFLEX4 M1 PO
== END ==
LOC: SJCVC 07:27 → SJCVCIMAG 13:14 → SJCVC 13:25 → SJCVCIMAG 13:29
DX: I11.0 Hypertensive heart disease with heart failure (principal); I50.9 Heart failure, unspecified; I25.10 Atherosclerotic heart disease of native coronary artery without angina pectoris; G47.33 Obstructive sleep apnea (adult) (pediatric); J44.9 Chronic obstructive pulmonary disease, unspecified; E78.00 Pure hypercholesterolemia, unspecified; Z79.899 Other long term (current) drug therapy

== ENCOUNTER → 2020-06-03 | Outpatient (CLI) | payer OTHER | LOC: SJCVC 16:47 | PROVIDERS: ATTEND Internal Medicine Cardiovascular Disease | DX: E11.22 Type 2 diabetes mellitus with diabetic chronic kidney disease (principal); I13.0 Hypertensive heart and chronic kidney disease with heart failure and stage 1 through stage 4 chronic kidney disease, or unspecified chronic kidney disease; I50.32 Chronic diastolic (congestive) heart failure; N18.3 Chronic kidney disease, stage 3 (moderate); I27.20 Pulmonary hypertension, unspecified; I25.10 Atherosclerotic heart disease of native coronary artery without angina pectoris; E78.00 Pure hypercholesterolemia, unspecified ==

== ENCOUNTER → 2021-03-03 | Outpatient (CLI) | payer OTHER | LOC: SJCVCIMAG 09:15 | PROVIDERS: ATTEND Internal Medicine Cardiovascular Disease | DX: I07.1 Rheumatic tricuspid insufficiency (principal); I25.10 Atherosclerotic heart disease of native coronary artery without angina pectoris; E78.00 Pure hypercholesterolemia, unspecified; E11.22 Type 2 diabetes mellitus with diabetic chronic kidney disease; I13.0 Hypertensive heart and chronic kidney disease with heart failure and stage 1 through stage 4 chronic kidney disease, or unspecified chronic kidney disease; I50.32 Chronic diastolic (congestive) heart failure; N18.30 Chronic kidney disease, stage 3 unspecified; I27.20 Pulmonary hypertension, unspecified; E78.1 Pure hyperglyceridemia; J44.9 Chronic obstructive pulmonary disease, unspecified; G47.33 Obstructive sleep apnea (adult) (pediatric); G89.29 Other chronic pain; F17.210 Nicotine dependence, cigarettes, uncomplicated; Z88.5 Allergy status to narcotic agent; Z79.899 Other long term (current) drug therapy ==